=== PATIENT | male | born 1975 | race Two or more races ===

== ENCOUNTER 2021-06-23 18:17 | Emergency (ER) | payer OTHER ==
[~2021-06-23] VITALS: Ht 177.8 cm; Wt 78.9 kg
[2021-06-23] MEDS ORDERED: [UNRECOGNIZED DRUG - CODE] (19:57)
== END 2021-06-24 00:49 | disposition home or self-care (01) ==
LOC: ER 18:17
DX: S69.81XA Other specified injuries of right wrist, hand and finger(s), initial encounter (principal); Y04.2XXA Assault by strike against or bumped into by another person, initial encounter; Y92.89 Other specified places as the place of occurrence of the external cause; S09.8XXA Other specified injuries of head, initial encounter; I10 Essential (primary) hypertension; S89.91XA Unspecified injury of right lower leg, initial encounter; M54.2 Cervicalgia